=== PATIENT | female | born 1960 | race Caucasian/White ===

== ENCOUNTER 2020-06-02 12:34 | Emergency (ER) | payer OTHER ==
[~2020-06-02] VITALS: Ht 160 cm; Wt 73.6 kg
[2020-06-02 13:30] VITALS: BP 104/76
== END 2020-06-02 15:34 | disposition home or self-care (01) ==
LOC: EMS 12:40
DX: Z03.818 Encounter for observation for suspected exposure to other biological agents ruled out (principal)
CPT/HCPCS: 99283; U0003